=== PATIENT | female | born 1990 | race African-American/Black ===

== ENCOUNTER 2018-05-05 08:41 | Emergency (ER) | payer SELFPAY ==
[~2018-05-05] VITALS: Ht 162.6 cm; Wt 90.0 kg
[2018-05-05 08:45] VITALS: BP 111/62
--- NOTE | 2018-05-05 09:08 | RAD ---
Examination: 3 views of the left ankle HISTORY: History of left ankle pain COMPARISON: None available FINDINGS: The alignment of the ankle mortise grossly appears unremarkable. There is no acute fracture or dislocation identified. IMPRESSION: No acute osseous findings. Electronically signed by: Cortez Castaneda MD (05/05/2018 9:05 AM) [id number]
--- NOTE | 2018-05-05 09:17 | PHYS DOC ---
Past History Past Medical History: No Pertinent History Past Surgical History: No Surgical History Smoking: Non-smoker Alcohol Use: None Drug Use: None Adult General Chief Complaint Chief Complaint: ANKLE PROBLEM HPI HPI 27 year old female presents with left foot and ankle pain. The patient has had this pain for about the last 4 days. She states that it is worse when she first gets up in the morning puts weight on her foot. Does seem to improve as she continues to use her foot. After she rests for a while the pain increases again. She denies any recent trauma. She does remember, rolling her foot to the outside several days, but it did not hurt at that time. She does this somewhat frequently as a habit. She denies inability to walk. She's had no previous trauma or surgery to this foot. Review of Systems Review of Systems Constitutional: Denies fever or chills [] Eyes: Denies change in visual acuity, redness, or eye pain [] HENT: Denies nasal congestion or sore throat [] Respiratory: Denies cough or shortness of breath [] Cardiovascular: No additional information not addressed in HPI [] GI: Denies abdominal pain, nausea, vomiting, bloody stools or diarrhea [] : Denies dysuria or hematuria [] Musculoskeletal: Foot and ankle pain[] Integument: Denies rash or skin lesions [] Neurologic: Denies headache, focal weakness or sensory changes [] Endocrine: Denies polyuria or polydipsia [] All other systems were reviewed and found to be within normal limits, except as documented in this note. Allergies Allergies Allergies Coded Allergies Type Severity Reaction Last Updated Verified No Known Drug Allergies 08/28/13 No Physical Exam Physical Exam Constitutional: Well developed, well nourished, no acute distress, non-toxic appearance. [] HENT: Normocephalic, atraumatic, bilateral external ears normal, oropharynx moist, no oral exudates, nose normal. [] Eyes: PERRLA, EOMI, conjunctiva normal, no discharge. [] Neck: Normal range of motion, no tenderness, supple, no stridor. [] Cardiovascular:Heart rate regular rhythm, no murmur [] Lungs & Thorax: Bilateral breath sounds clear to auscultation [] Abdomen: Bowel sounds normal, soft, no tenderness, no masses, no pulsatile masses. [] Skin: Warm, dry, no erythema, no rash. [] Back: No tenderness, no CVA tenderness. [] Extremities: Left foot tenderness over the superior lateral aspect of the foot as well as along the plantar fascia, worse near the calcaneus. No deformity or swelling.[] Neurologic: Alert and oriented X 3, normal motor function, normal sensory function, no focal deficits noted. [] Psychologic: Affect normal, judgement normal, mood normal. [] Current Patient Data Vital Signs Vital Signs Date Time Temp Pulse Resp B/P (MAP) Pulse Ox O2 Delivery O2 Flow Rate FiO2 05/05/18 08:45 97.8 77 16 100 Room Air EKG EKG [] Radiology/Procedures Radiology/Procedures [] Impressions: Examination: 3 views of the left ankle HISTORY: History of left ankle pain COMPARISON: None available FINDINGS: The alignment of the ankle mortise grossly appears unremarkable. There is no acute fracture or dislocation identified. IMPRESSION: No acute osseous findings. Electronically signed by: Cortez Castaneda MD (05/05/2018 9:05 AM) [id number] DICTATED AND SIGNED BY: CORTEZ CASTANEDA MD DATE: 05/05/18 0905 CC: MARCIE GREER DO; PCP,NO ~ Course & Med Decision Making Course & Med Decision Making Pertinent Labs and Imaging studies reviewed. (See chart for details) The patient's ankle and foot x-rays are negative for fracture or dislocation. I believe first symptoms are either related to the mid foot strain or plantar fasciitis. She is exhibiting several hallmarks symptoms of acute plantar fasciitis. She has not had difficulty with this in the past, but may have caused a flareup while working that she didn't realize. I will discharge her with plantar fasciitis management discharge instructions. She is stable for discharge at this time. [] Dragon Disclaimer Dragon Disclaimer This electronic medical record was generated, in whole or in part, using a voice recognition dictation system. Departure Departure: Impression: Primary Impression: Other sprain of left foot, initial encounter Additional Impression: Plantar fasciitis of left foot Disposition: 01 HOME, SELF-CARE Condition: STABLE Referrals: PCPMARIBEL (PCP) Patient Instructions: Plantar Fasciitis (Heel Spur Syndrome) with Rehab- [facility] Problem Qualifiers MARCIE GREER DO May 05, 2018 09:17
--- NOTE | 2018-05-05 09:39 | RAD ---
Examination: 3 views of the left foot HISTORY: History of mid foot pain, no injury COMPARISON: None available. FINDINGS: The alignment of the tarsal bones, tarsometatarsal joints, metatarsophalangeal joints, interphalangeal joints grossly appears unremarkable. There is no obvious acute fracture identified. IMPRESSION: No acute osseous findings. Electronically signed by: Cortez Castaneda MD (05/05/2018 9:36 AM) [id number]
== END 2018-05-05 09:38 | disposition home or self-care (01) ==
LOC: ER 08:41
DX: S93.602A Unspecified sprain of left foot, initial encounter (principal); M72.2 Plantar fascial fibromatosis; X50.9XXA Other and unspecified overexertion or strenuous movements or postures, initial encounter; Y93.89 Activity, other specified; Y92.89 Other specified places as the place of occurrence of the external cause; Y99.8 Other external cause status
CPT/HCPCS: 73610; 73630; 99283

== ENCOUNTER 2019-01-25 16:32 | Emergency (ER) | payer OTHER ==
[~2019-01-25] VITALS: Ht 162.6 cm; Wt 102.0 kg
[2019-01-25 16:47] VITALS: BP 120/82
[2019-01-25] MEDS ORDERED: TRAM50TA PO (17:10)
--- NOTE | 2019-01-25 17:10 | PHYS DOC ---
Past History Past Medical History: No Pertinent History Past Surgical History: No Surgical History Smoking: Non-smoker Alcohol Use: None Drug Use: None Adult General Chief Complaint Chief Complaint: DENTAL PROBLEM HPI HPI Patient is a 28-year-old 25 week gestation AA female who presents with dental pain times one week with gingival swelling and anterior lower bicuspid pain for 3 days. Patient was attempted contacted dentist but has not been able to find a dentist to take her insurance. No dysphonia disc drooling or trismus. No other acute symptoms or complaints.[] Review of Systems Review of Systems ROS as per HPI[] All other systems were reviewed and found to be within normal limits, except as documented in this note. Allergies Allergies Allergies Coded Allergies Type Severity Reaction Last Updated Verified No Known Drug Allergies 08/28/13 No Physical Exam Physical Exam Constitutional: Well developed, well nourished, no acute distress, non-toxic appearance. [] HENT: Normocephalic, atraumatic, bilateral external ears normal, oropharynx moist, dental pain,th gingival swelling and anterior lower bicuspid pain for 3 days, nose normal. [] Eyes: PERRLA, EOMI, conjunctiva normal, no discharge. [] Neck: Normal range of motion, no tenderness, supple, no stridor. [] Cardiovascular:Heart rate regular rhythm, no murmur [] Lungs & Thorax: Bilateral breath sounds clear. [] Neurologic: Alert and oriented X 3, normal motor function, normal sensory function, no focal deficits noted. [] Psychologic: Affect normal, judgement normal, mood normal. [] Current Patient Data Vital Signs Vital Signs Date Time Temp Pulse Resp B/P (MAP) Pulse Ox O2 Delivery O2 Flow Rate FiO2 01/25/19 16:47 98.1 78 16 98 Room Air EKG EKG [] Radiology/Procedures Radiology/Procedures [] Course & Med Decision Making Course & Med Decision Making Pertinent Labs and Imaging studies reviewed. (See chart for details) [Dental pain secondary to dental caries. Antibiotics and pain medications prescribed. Recommendations are to follow-up with dentist [facility]] Dragon Disclaimer Dragon Disclaimer This electronic medical record was generated, in whole or in part, using a voice recognition dictation system. Departure Departure: Impression: Primary Impression: Pain due to dental caries Disposition: 01 HOME/RESIDENCE PRIOR TO ADM Condition: STABLE Referrals: PCP,NO (PCP) Patient Instructions: Dental Caries Additional Instructions: Take antibiotics as directed and Tylenol for pain. Take tramadol as needed for additional relief and follow-up with dentist of choice [facility]. Scripts Tramadol Hcl (TRAMADOL HCL) 50 Mg Tablet 50 MG PO PRN Q6HRS PRN for PAIN, #10 TAB Prov: MARCIE PIERCE DO 01/25/19 MARCIE PIERCE DO Jan 25, 2019 17:10
[2019-01-25] MEDS ORDERED: PENI500T PO (17:14)
== END 2019-01-25 17:19 | disposition home or self-care (01) ==
LOC: ER 16:32
DX: O99.612 Diseases of the digestive system complicating pregnancy, second trimester (principal); K02.9 Dental caries, unspecified; Z3A.25 25 weeks gestation of pregnancy
CPT/HCPCS: 99283